=== PATIENT | female | born 1995 | race African-American/Black ===

== ENCOUNTER 2021-02-14 13:22 | Emergency (ER) | payer BC ==
[~2021-02-14] VITALS: Ht 165.1 cm; Wt 58.0 kg
[2021-02-14 13:27] VITALS: BP 106/63
== END 2021-02-14 17:13 | disposition home or self-care (01) ==
LOC: ER 13:22
DX: R09.89 Other specified symptoms and signs involving the circulatory and respiratory systems (principal); T17.228A Food in pharynx causing other injury, initial encounter; X58.XXXA Exposure to other specified factors, initial encounter; Y93.9 Activity, unspecified; Y92.9 Unspecified place or not applicable
CPT/HCPCS: 70360; 71045; 99284